=== PATIENT | male | born 1985 | race African-American/Black ===

== ENCOUNTER 2018-02-13 09:56 | Emergency (ER) | payer SELFPAY ==
[~2018-02-13] VITALS: Ht 182.9 cm; Wt 77.0 kg
[2018-02-13 09:59] VITALS: BP 157/98
[2018-02-13] MEDS ORDERED: IBUPROFEN 800MG TABLET PO ONE (11:45)
== END 2018-02-13 11:50 | disposition home or self-care (01) ==
LOC: ER 10:07
DX: M54.89 Other dorsalgia (principal); I10 Essential (primary) hypertension; R01.1 Cardiac murmur, unspecified; F17.200 Nicotine dependence, unspecified, uncomplicated; F12.10 Cannabis abuse, uncomplicated; V43.52XA Car driver injured in collision with other type car in traffic accident, initial encounter; Y93.89 Activity, other specified; Y92.488 Other paved roadways as the place of occurrence of the external cause
CPT/HCPCS: 99283